=== PATIENT | male | born 1990 | race Two or more races ===

== ENCOUNTER 2025-07-04 09:30 | Emergency (ER) | payer OTHER ==
[~2025-07-04] VITALS: Ht 188 cm; Wt 120.2 kg
[2025-07-04] MEDS ORDERED: CEFTRIAXONE SODIUM 1,000 MG VIAL IM ONE (10:00)
[2025-07-04] MEDS ORDERED: KETOROLAC TROMETHAMINE 60 MG VIAL IM ONE (10:00)
== END 2025-07-04 11:11 | disposition home or self-care (01) ==
LOC: ER 09:30
DX: H66.91 Otitis media, unspecified, right ear (principal)